=== PATIENT | male | born 1980 | race Caucasian/White ===

== ENCOUNTER 2019-07-19 09:49 | Inpatient (IN) | payer OTHER ==
[~2019-07-19] VITALS: Ht 167.6 cm; Wt 100.5 kg
[2019-07-19 10:23] LABS: BASOPHILS ABSOLUTE AUTO 0.11 K/mm3 (0.00-0.23); BASOPHILS PERCENT AUTO 1 % (0-2); EOSINOPHILS ABSOLUTE AUTO 0.02 K/mm3 (0.00-0.68); EOSINOPHILS PERCENT AUTO 0 % (0-6); Hematocrit 54.7 % (37.0-53.0); Hemoglobin 20.1 g/dL (13.5-17.5); IMMATURE GRAN ABSOLUTE AUTO 0.09 K/mm3 (0.00-0.10); IMMATURE GRAN PERCENT AUTO 0 % (0-1); LYMPHOCYTES ABSOLUTE AUTO 2.61 K/mm3 (0.84-5.20); LYMPHOCYTES PERCENT AUTO 13 % (21-46); MONOCYTES ABSOLUTE AUTO 1.51 K/mm3 (0.16-1.47); MONOCYTES PERCENT AUTO 7 % (4-13); Mean Corpuscular HGB 32.6 pg (26.0-34.0); Mean Corpuscular HGB Conc 36.7 g/dL (31.5-36.5); Mean Corpuscular Volume 89 fL (80-100); Mean Platelet Volume 10.2 fL (9.1-12.4); NEUTROPHILS ABSOLUTE AUTO 16.27 K/mm3 (1.96-9.15); NEUTROPHILS PERCENT AUTO 79 % (41-73); Platelet Count 343 K/mm3 (150-400); RDW Coefficient Variation 11.7 % (11.7-14.2); RDW Standard Deviation 37.8 fL (35.1-46.3); Red Blood Cell Count 6.16 M/mm3 (4.30-5.90); White Blood Cell Count 20.61 K/mm3 (4.00-11.30)
[2019-07-19 10:32] LABS: Alanine Aminotransfer (ALT/SGP 98 U/L (12-78); Albumin, Blood 4.9 g/dL (3.4-5.0); Anion Gap 11 mmol/L (6-16); Aspartate Aminotrans (AST/SGOT 313 U/L (12-37); Blood Urea Nitrogen 7 mg/dL (8-24); Bun/Creatinine Ratio 10.2 (12.0-20.0); CO2, Blood 25 mmol/L (21-32); Calcium, Blood 10.1 mg/dL (8.5-10.1); Chloride, Blood 100 mmol/L (98-108); Creatinine, Blood 0.68 mg/dL (0.60-1.20); Glomerular Filtration Rate >60 (60-); Glucose, Blood 132 mg/dL (70-99); Potassium, Blood 3.8 mmol/L (3.5-5.5); Sodium, Blood 136 mmol/L (136-145)
[2019-07-19 10:33] LABS: Bilirubin, Total 0.9 mg/dL (0.1-1.0)
[2019-07-19 10:36] LABS: Albumin/Globulin Ratio 1.1 (0.8-1.8); Alk Phos 86 U/L (50-136); Globulin, Blood 4.6 g/dL (2.2-4.0); Total Protein, Blood 9.5 g/dL (6.4-8.2)
[2019-07-19 11:50] LABS: International Normalized Ratio 0.98; Prothrombin Time Results 10.5 Sec (9.7-11.5)
[2019-07-19 11:58] LABS: Thyroid Stimulating Hormone 1.01 uIU/mL (0.360-4.800)
--- NOTE | 2019-07-19 15:45 | NUR ---
PT ARRIVED ALERT AND ORIENTED FROM [facility]. TR BAND IN PLACE TO RIGHT RADIAL W/ 11ML OF AIR. SITE IS SOFT, NONTENDER, NO HEMATOMA. PT C/O CP 3-/10. AWARE, ORDERS RECEIVED FOR NITRO PASTE. PT'S SBP CONTINUES TO BE ELEVATED 150-170'S. MONITOR SHOWS PT TO BE IN A SINUS RHYTHM.
[2019-07-19 16:43] LABS: Source, Urine Clean Catch
[2019-07-19 16:48] LABS: Bilirubin, Urine Neg (Neg); Blood, Urine Neg (Neg); Glucose Qualitative, Urine Neg (Neg); Ketones, Urine 1+ (Neg); Leukocyte Esterase, Urine Neg (Neg); Nitrite, Urine Neg (Neg); Protein, Urine Neg (Neg); Urobilinogen, Urine NORM (Normal)
[2019-07-19 16:57] LABS: Appearance, Urine Clear (Clear); Color, Urine Yellow (P-Yellow)
[2019-07-19 17:03] LABS: U Amphetamine Screen Not Detected; U Barbituate Screen Not Detected; U Benzodiazapine Screen DETECTED; U Buprenorphine Screen Not Detected; U Cannabinoids Screen DETECTED; U Cocaine Screen Not Detected; U Methadone Screen Not Detected; U Methamphetamine Screen Not Detected; U Opiates Screen Not Detected; U Oxycodone Screen Not Detected; U Phencyclidine Screen Not Detected; U Propoxyphene Screen Not Detected
--- NOTE | 2019-07-19 19:26 | NUR ---
SHIFT SUMMARY PT'S BP'S CONTINUED TO CLIMB AND WAS TREATED WITH PRN HYDRALAZINE. AROUND 1745 PT DEVELOPED CHEST PAIN 01/27. DR CHUN NOTIFIED AND ORDERS RECEIVED. AFTER LOPRESSOR, EKG AND MORPHINE PT STATED PAIN HAD IMPROVED TO 3/10. RIGHT RADIAL SITE REMAINED C/D/I, NO HEMATOMA. HANDED OFF TO BUCKLE SEWER RN TO START REMOVING AIR FROM TR BAND. PT HAS REMAINED IN NSR TO SINUS TACH ON THE MONITOR. END OF SHIFT SBP'S WERE IN THE 130'S.
--- NOTE | 2019-07-19 23:13 | NUR ---
DR. CHUN, NOTIFIED AND UPDATED. NEW ORDERS TO NOT GIVE AND D/C HEPARIN. PHARMACIST NOTIFIED.
[2019-07-20 03:41] LABS: BASOPHILS ABSOLUTE AUTO 0.06 K/mm3 (0.00-0.23); BASOPHILS PERCENT AUTO 0 % (0-2); EOSINOPHILS ABSOLUTE AUTO 0.03 K/mm3 (0.00-0.68); EOSINOPHILS PERCENT AUTO 0 % (0-6); Hematocrit 46.2 % (37.0-53.0); Hemoglobin 16.4 g/dL (13.5-17.5); IMMATURE GRAN ABSOLUTE AUTO 0.08 K/mm3 (0.00-0.10); IMMATURE GRAN PERCENT AUTO 1 % (0-1); LYMPHOCYTES ABSOLUTE AUTO 2.29 K/mm3 (0.84-5.20); LYMPHOCYTES PERCENT AUTO 13 % (21-46); MONOCYTES ABSOLUTE AUTO 1.97 K/mm3 (0.16-1.47); MONOCYTES PERCENT AUTO 12 % (4-13); Mean Corpuscular HGB Conc 35.5 g/dL (31.5-36.5); Mean Corpuscular Volume 90 fL (80-100); Mean Platelet Volume 10.7 fL (9.1-12.4); NEUTROPHILS ABSOLUTE AUTO 12.68 K/mm3 (1.96-9.15); NEUTROPHILS PERCENT AUTO 74 % (41-73); Platelet Count 309 K/mm3 (150-400); RDW Coefficient Variation 11.9 % (11.7-14.2); Red Blood Cell Count 5.12 M/mm3 (4.30-5.90); White Blood Cell Count 17.11 K/mm3 (4.00-11.30)
[2019-07-20 04:02] LABS: Alanine Aminotransfer (ALT/SGP 76 U/L (12-78); Albumin, Blood 3.8 g/dL (3.4-5.0); Alk Phos 67 U/L (50-136); Anion Gap 8 mmol/L (6-16); Aspartate Aminotrans (AST/SGOT 220 U/L (12-37); Bilirubin, Total 1.2 mg/dL (0.1-1.0); Blood Urea Nitrogen 9 mg/dL (8-24); Bun/Creatinine Ratio 12.8 (12.0-20.0); CHOL/HDL RATIO 4.8; CO2, Blood 25 mmol/L (21-32); Calcium, Blood 9.3 mg/dL (8.5-10.1); Chloride, Blood 103 mmol/L (98-108); Cholesterol 182 mg/dL (50-200); Creatinine, Blood 0.71 mg/dL (0.60-1.20); Glomerular Filtration Rate >60 (60-); Glucose, Blood 119 mg/dL (70-99); HDL Cholesterol 38 mg/dL (>39); LDL/HDL RATIO 2.4; Low Density Lipoprotein Chol 91 mg/dL (0-110); Potassium, Blood 3.7 mmol/L (3.5-5.5); Sodium, Blood 136 mmol/L (136-145); Total Protein, Blood 7.8 g/dL (6.4-8.2); Triglycerides 264 mg/dL (30-140); Very Low Density Lipoprot Chol 52 mg/dL (6-28)
--- NOTE | 2019-07-20 06:03 | NUR ---
SHIFT SUMMARY: PT RESTED T/O NOC. VSS. PT ONLY C/O WAS HEADACHE PAIN AND DENIED CP, SOB, AND/OR NUMB/TING. PT ACTUALLY COMMENTED A FEW TIMES HOW GOOD AND MUCH BETTER HE FELT. TR BAND IS OFF AND TEGADERM DONNED. RIGHT RADIAL SITE WNL. WRIST BOARD REMAINS IN PLACE. WILL CONTINUE TO MONITOR AND REPORT OFF TO ONCOMING DAY RN.
--- NOTE | 2019-07-20 08:45 | NUR ---
INITIAL ASSESSMENT PATIENT SLEEPING SOUNDLY UPON ENTERING ROOM. PATIENT WOKE TO VERBAL STIMULI. PATIENT ALERT AND ORIENTED X 4, AFEBRILE. CIWA SCORE OF 4. RESP WNL. PATIENT SATTING 90% AND GREATER ON RA. PATIENT IN SR TO ST, HR 90S TO 1-TEENS. SBP 130S TO 160S. GI WNL. WNL- URINAL AT BEDSIDE. R RADIAL FILLING HAND ACCESS SITE WNL- NO BLEEDING, BRUISING, HEMATOMA NOTED. TEGADERM C/D/I. IV FLUSHED AND SALINE LOCKED. PATIENT HAS NO COMPLAINTS AT THIS TIME. BED LOW, CALL LIGHT IN REACH. WILL CONTINUE TO MONITOR PATIENT FREQUENTLY THROUGHOUT SHIFT.
--- NOTE | 2019-07-20 12:00 | NUR ---
PATIENT RESTING QUIETLY IN BED WITH NO COMPLAINTS. PATIENT AFEBRILE. PATIENT REMAINS SATTING 90% AND GREATER ON RA. PATIENT HR REMAINS 90S TO 1-TEENS. SBP 140S. R RADIAL SITE REMAINS WNL. NO BLEEDING, BRUISING, HEMATOMA NOTED. CIWA SCORE OF 3. NO OTHER ACUTE CHANGES TO NOTE ON AT THIS TIME. WILL CONTINUE TO MONITOR.
--- NOTE | 2019-07-20 12:16 | NUR ---
NITRO PASTE REMOVED FROM PATIENT'S CHEST BY VERBAL ORDER FROM DR. ALEXIS.
[2019-07-20] MEDS ORDERED: ATOR80 PO (12:39)
[2019-07-20] MEDS ORDERED: Prinivil10 MG PO (12:39)
[2019-07-20] MEDS ORDERED: ASPI81CH PO (12:39)
[2019-07-20] MEDS ORDERED: TICA90TA PO (12:40)
[2019-07-20] MEDS ORDERED: METO25 PO (12:40)
[2019-07-20] MEDS ORDERED: NITR.4SL SL (12:42)
--- NOTE | 2019-07-20 13:45 | NUR ---
DR. ALEXIS CALLED AND INFORMED THAT PATIENT WALKED MAGALLANES IN ICU AND MAGALLANES OUTSIDE OF PCU. INFORMED THAT PATIENT HAD NO COMPLAINTS OF PAIN, PRESSURE, N/T OR LIGHT HEADEDNESS. PATIENT TO DISCHARGE HOME.
--- NOTE | 2019-07-20 14:20 | NUR ---
SHIFT SUMMARY PATIENT REMAINED ALERT AND ORIENTED X 4, AFEBRILE. PATIENT REMAINED SATTING 90% AND GREATER ON RA. PATIENT REMAINED IN SR TO ST, HR 90S TO 1-TEENS. SBP 130S TO 160S. GI WNL. NO BM THIS SHIFT. PATIENT TOLERATED CARDIAC DIET WELL AND HAD GOOD APPETITE. WNL. R RADIAL SITE REMAINS WNL; NO BLEEDING, BRUISING, HEMATOMA. IV REMOVED. PATIENT HAD COMPLAINTS OF HEADACHE OT DURING SHIFT AND REPORTED RELIEF WITH PRN TYLENOL ADMINISTRATION. PATIENT HAD NO COMPLAINTS OF CHEST PAIN, PRESSURE, DIZZINESS, OR N/T. PATIENT STATED HE UNDERSTOOD ALL DISCHARGE INFORMATION. ALL NEW MEDS CALLED INTO PATIENT'S PHARMACY AT [facility]. FAMILY MEMBER HERE TO TAKE PATIENT HOME. PATIENT SUCCESSFULLY DISCHARGED.
[2019-07-20 14:37] LABS: Adenovirus Not Detected (NOT DETECT); Bordetella pertussis Not Detected (NOT DETECT); Chlamydophila pneumoniae Not Detected (NOT DETECT); Coronavirus 229E Not Detected (NOT DETECT); Coronavirus HKU1 Not Detected (NOT DETECT); Coronavirus NL63 Not Detected (NOT DETECT); Coronavirus OC43 Not Detected (NOT DETECT); Human Metapneumovirus Not Detected (NOT DETECT); Human Rhinovirus/Enterovirus Not Detected (NOT DETECT); Influenza A Not Detected (NOT DETECT); Influenza A/2009-H1 Not Detected (NOT DETECT); Influenza A/H1 Not Detected (NOT DETECT); Influenza A/H3 Not Detected (NOT DETECT); Influenza B Not Detected (NOT DETECT); Mycoplasma pneumoniae Not Detected (NOT DETECT); Parainfluenza Virus 1 Not Detected (NOT DETECT); Parainfluenza Virus 2 Not Detected (NOT DETECT); Parainfluenza Virus 3 Not Detected (NOT DETECT); Parainfluenza Virus 4 Not Detected (NOT DETECT); Respiratory Syncytial Virus Not Detected (NOT DETECT)
== END 2019-07-20 14:20 | disposition home or self-care (01) | DRG 247 ==
LOC: ER 09:49 → ICUW 11:26
PROVIDERS: Emergency Medicine; Nurse Practitioner Acute Care; ADMIT Internal Medicine
PROC: 027034Z Dilation of Coronary Artery, One Artery with Drug-eluting Intraluminal Device, Percutaneous Approach (ICD-10-PCS; principal; 2019-07-19)
PROC: B240ZZ3 Ultrasonography of Single Coronary Artery, Intravascular (ICD-10-PCS; 2019-07-19)
DX: I21.4 Non-ST elevation (NSTEMI) myocardial infarction (principal); D72.829 Elevated white blood cell count, unspecified; R73.9 Hyperglycemia, unspecified; F17.210 Nicotine dependence, cigarettes, uncomplicated; R74.0 Nonspecific elevation of levels of transaminase and lactic acid dehydrogenase [LDH]
CPT/HCPCS: 0099U; 36415; 71046; 76937; 80053; 80061; 81003; 83036; 83690; 83735; 84443; 84484; 85025; 85347; 85610; 85730; 90686; 93005; 93010; 93306; 93458; 96365-59; 96375-59; 96376; 99152; 99153; 99285-25; A9270; C1725; C1769; C1874; C1887; C1894; C9113; C9600; J0360; J1644; J2250; J2270; J3010; J7030; J7040; Q9967